=== PATIENT | female | born 1970 | race Asian ===

== ENCOUNTER → 2023-12-10 08:47 | Outpatient (REF) | payer OTHER, SELFPAY | LOC: HWWDC 08:47 | PROVIDERS: ATTENDING PHYSICIAN Obstetrics & Gynecology; FAMILY PHYSICIAN Physician Assistant Medical | DX: Z12.31 Encounter for screening mammogram for malignant neoplasm of breast (principal) | CPT/HCPCS: 77063; 77067 ==

== ENCOUNTER → 2024-12-15 11:01 | Outpatient (REF) | payer OTHER, SELFPAY | LOC: HWWDC 11:01 | PROVIDERS: ATTENDING PHYSICIAN Obstetrics & Gynecology; FAMILY PHYSICIAN Physician Assistant Medical | DX: Z12.31 Encounter for screening mammogram for malignant neoplasm of breast (principal) | CPT/HCPCS: 77063; 77067 ==

== ENCOUNTER → 2025-07-25 15:02 | Outpatient (REF) | payer BC, SELFPAY | LOC: HWRAD 15:02 | PROVIDERS: ATTENDING PHYSICIAN Physician Assistant Medical | DX: Z91.81 History of falling (principal); J34.89 Other specified disorders of nose and nasal sinuses | CPT/HCPCS: 70150 ==